=== PATIENT | male | born 1950 | race Caucasian/White ===

== ENCOUNTER 2017-07-31 08:17 | Inpatient (IN) ==
--- OUTSIDE RECORDS SUMMARY | 2017-07-31 08:56 | External Medical Summary | Referral Summary ---
:1950 Author Organization [facility] [address] [place] [id number] Care Team Providers Name Role Phone Anjel Dickerson II Primary Care Physician Encounter VC Date(s): 12/03/14 - 12/03/14 [facility] [address] [place] [phone] [phone] Discharge Diagnosis: Encounter for examination required by Department of Transportation (DOT) Discharge Disposition: 01-Home or Self Care Attending Physician: Ben Parham MD Admitting Physician: Ben Parham MD Vital Signs Most recent to oldest [Reference Range]: 1 Temperature Tympanic [36.6-38.1 degC] 36.2 degC *LOW* (12/03/14 7:58 AM) Peripheral Pulse Rate [60-100 bpm] 68 bpm (12/03/14 7:58 AM) Respiratory Rate [14-20 br/min] 18 br/min (12/03/14 7:58 AM) Blood Pressure [90-140/60-90 mmHg] 132/86 mmHg (12/03/14 7:58 AM) Problem List No data available for this section Allergies, Adverse Reactions, Alerts No Known Medication Allergies Medications ProAir HFA 90 mcg/inh inhalation aerosol 1 puffs, Inhalation, QID, as needed for wheezing, # 8.5 g, 0 Refill(s) Start Date: 12/03/14 Status: Ordered Results No data available for this section Immunizations No data available for this section Procedures No data available for this section Social History Social History Type Response Smoking Status Never smoker Assessment and Plan Extracted from: Title: Ambulatory Patient Education Author: Ben Parham MD Date: 12/03 Medical Screening Exam A medical screening exam has been done. This exam helps find the cause of your problem and determines whether you need emergency treatment. Your exam has shown that you do not need emergency treatment a t this point. It is safe for you to go to your caregiver's office or clinic for treatment. You should make an appointment today to see your caregiver as soon as he or she is available. Depending on your illness, your symptoms and condition can exchange mechanic time. If your condition gets worse or you develop new or troubling symptoms before you see your caregiver, you should return to the emergency department for further evaluation. Document Released: 07/04/2005 Document Revised: 08/18/2012 Document Reviewed: 02/13/2012 Exit[employer] Patient Information 2014 [employer]. No follow up information was provided. Extracted from: Title: Office Visit Note Author: Ben Parham MD Date: 12/03/14 Assessment/Plan Encounter for examination required by Department of Transportation (DOT) Overall he appears healthy and doing well. 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 He'll continue to follow-up with his regular primary care physician for his other chronic health problems. Report completed.
--- OUTSIDE RECORDS SUMMARY | 2017-07-31 08:56 | External Medical Summary | Continuity of Care Document ---
:1950 Author Organization [facility] Allergies Active Description Code Type Severity Reaction Onset Reported/ Identified Relationship Clinical to Patient Status Yes No Allergy Drug 08/14/2012 Information Aller gy Yes No Known Drug 09/19/2012 Drug Aller Allergies gy Yes No Known Drug N/A N/A 09/19/2012 Drug Aller Allergies gy Yes No Known NKMA N/A N/A 12/03/2014 Medication Allergies Medications There is no data. Problems Date Dx Attending Type Code Diagnosis Diagnosed By Coded 08/14/2012 Clayton Turner MD Final 493.90 ASTHMA NOS 08/14/2012 Clayton Turner MD Final 511.0 PLEURISY W/O EFFUS OR TB 08/14/2012 Clayton Turner MD Final 553.3 DIAPHRAGMATIC HERNIA 08/14/2012 Clayton Turner MD Admitting 786.50 CHEST PAIN NOS 09/19/2012 Final 300.00 ANXIETY STATE NOS 09/19/2012 Final 530.81 ESOPHAGEAL REFLUX 09/19/2012 Final 600.00 PROS HYPERTR S OBST/LUTS 09/19/2012 786.05 SHORTNESS OF BREATH 09/19/2012 Final 793.19 NONSP FINDING-LF NEC 10/09/2012 Gianna ANGLIN, Final 786.05 SHORTNESS OF BREATH Aydee R 10/09/2012 Gianna ANGLIN, Admitting 786.05 SHORTNESS OF BREATH Aydee Tellez Procedures Code Description [place] [id number] DX Aydee Katz MD 09/19/2012 BRONCHOSCOPE/WASH Results There is no data. Encounters ACCT No. Visit Discharge Status Pt. Type Provider Facility Loc./Unit Complaint Date/Time [id number] 10/09/2012 10/09/2012 CLS Outpatient Gianna [facility]16[facility]59[id number]/14[facility]2012 08/14/2012 DIS Emergency Yue ANGLIN, Via [facility] 6 08:14:00 11:17:00 [facility] [id number] 09/19/2012 Document 5 07:26:00 Registrati on [id number] 11/14/2012 11/14/2012 CAN Outpatient Kennedy [facility]GLIN, [facility] [place] 00:00:00 00:00:00 [facility] [id number] 12/03/2014 12/03/2014 DIS Outpatient Prasad, Via [facility] New FM dot pt is 07:48:00 23:59:00 Ben Rodriguez paying for Clinic
[2017-07-31] MEDS ORDERED: METHYLPREDNISOLONE SOD SUCC 125mg/2ml INJECTION IM ONE (09:05)
--- NOTE | 2017-07-31 09:24 | Emergency Department Report ---
Asthma HPI - General Stated Complaint: ronni,weak, Time Seen by Provider: 07/31/17 08:50 Source: patient, RN notes reviewed, old records reviewed Mode of arrival: ambulatory Limitations: no limitations - History of Present Illness HPI Narrative: 67yo man presents to the ER for evaluation of flu-like symptoms. Pt awoke with severe nausea, headache, congestion, rhinorrhea, F/C, diaphoresis, myalgias and arthralgias at 0400 this AM. Had no symptoms prior to going to sleep last night. Did get his flu shot this year (and his PNA shot). Feels weak and tired. Has a h/o asthma; was dyspneic on arrival to the ER. MD complaint: shortness of breath Onset (ago): hour(s) Severity: severe Associated symptoms: productive cough, fever - Related Data Current Asthma Therapy: inhaled bronchodilator, inhaled steroid Home Medications Medication Instructions Recorded Confirmed Albuterol Sulfate [Proair Hfa] 2 puff INH Q4H PRN #0 inhaler 06/30/14 07/31/17 Lansoprazole [Prevacid] 1 cap PO HS #0 cap 06/30/14 07/31/17 Tamsulosin HCl [Flomax] 0.4 mg PO HS #0 cap 06/30/14 07/31/17 ALPRAZolam [Xanax] 0.5 mg PO Q6H PRN 07/31/17 07/31/17 Fluticasone/Salmeterol 250/50 1 puff INH DAILY PRN 07/31/17 07/31/17 [Advair 250-50 Diskus] HydroCHLOROthiazide [Microzide] 12.5 mg PO DAILY 07/31/17 07/31/17 Hydrocodone/APAP 5/325 [[place] 1 - 2 tab PO QID PRN 07/31/17 07/31/17 5/325] Magnesium Oxide [Magnesium] 250 mg PO DAILY 07/31/17 07/31/17 Omeprazole [Prilosec] 20 mg PO DAILY 07/31/17 07/31/17 Potassium Chloride 10 meq PO DAILY 07/31/17 07/31/17 Allergies Allergy/AdvReac Type Severity Reaction Status Date / Time No Known Allergies Allergy Verified 07/31/17 09:39 Review of Systems All systems: reviewed and negative except as stated Constitutional: Reports: as per HPI, fever, chills, weakness. Denies: weight change, night sweats ENT: Reports: as per HPI, congestion. Denies: ear pain, throat pain, dental pain, hearing loss, epistaxis, dysphagia Respiratory: Reports: as per HPI, cough, dyspnea, wheezes. Denies: hemoptysis, stridor Musculoskeletal: Reports: as per HPI, arthralgia, myalgia. Denies: back pain, joint swelling [facility] Medical History Updates: Asthma. Anxiety. GERD. Hypokalemia. BPH - Social History Smoking status: Never smoker Physical Exam - Limitations Limitations: no limitations - General General appearance: alert, in no apparent distress, obese - Head Head exam: atraumatic, normocephalic, normal inspection - Eye Eye exam: Present: normal appearance, PERRL, EOMI. Absent: scleral icterus - ENT ENT exam: Present: mucous membranes moist, TM's normal bilaterally, normal external ear exam. Absent: normal exam, normal oropharynx (Erythema with PND) - Neck Neck exam: Present: normal inspection, full ROM, trachea midline. Absent: tenderness, lymphadenopathy - Chest Chest inspection: Present: normal inspection, symmetric chest wall rise. Absent : tenderness, rash - Respiratory Respiratory exam: Present: wheezes. Absent: normal lung sounds bilaterally ( Decreased air movement), respiratory distress, stridor, prolonged expiratory phase, crackles - Cardiovascular Cardiovascular exam: Present: normal rhythm, tachycardia, normal heart sounds - Abdominal Exam Abdominal exam: Present: soft, normal bowel sounds. Absent: distention, tenderness, guarding, rebound, rigidity - Extremities Exam Extremities exam: Present: normal inspection, full ROM, normal capillary refill. Absent: tenderness, pedal edema - Skin Skin exam: Present: warm, dry, intact. Absent: rash - Neurological Exam Neurological exam: Present: alert, oriented X3, CN II-XII intact, normal gait, reflexes normal. Absent: motor sensory deficit - Psychiatric Psychiatric exam: Present: anxious Course - Consultations Consultation #1: Hospitalist: Will admit for new-onset hypoxia. Time: 10:36 Vital Signs Temperature 100.0 F 07/31/17 08:35 Pulse Rate 130 H 07/31/17 08:35 Respiratory Rate 30 H 07/31/17 08:35 Blood Pressure 127/74 07/31/17 08:35 Pulse Oximetry 88 L 07/31/17 08:35 Temperature 100.0 F 07/31/17 08:35 Pulse Rate 112 H 07/31/17 09:50 Respiratory Rate 25 H 07/31/17 09:50 Blood Pressure 130/68 07/31/17 09:50 Pulse Oximetry 92 07/31/17 09:50 Dyspnea - MDM Narrative Medical decision making narrative: Pt with URI sx (flu neg), asthma exacerbation, and hypoxemia. After discussion wtih pt, will call hospitalist for likely admission. Hospitalist will admit pt for further eval/treatment. - Differential Diagnosis Differential diagnosis: Likely: Acute exacerbation, Status asthmaticus, Acute asthmatic bronchitis, Pneumonia, COPD exacerbation, Pneumothorax. Unlikely: PE , Pulmonary edema systolic, Pulmonary edema dystolic, ARDS, Foreign body in trachea - Medical Records Attestation: I reviewed the patient's medical records. - Lab Data Attestation: I reviewed the patient's lab results. Result diagrams: 07/31/17 09:38 07/31/17 09:38 Lab Results 07/31/17 07/31/17 07/31/17 Range/Units 09:15 09:38 09:38 WBC 13.1 H (4.5-11.0) T/MM3 RBC 5.20 (4.50-5.90) M/MM3 Hgb 15.7 (13.5-17.5) GM/DL Hct 48.3 (41-53) % MCV 92.9 (80-100) UM3 MCH 30.2 (26-34) UUG MCHC 32.5 (31-37) GM/DL RDW Std Deviation 43.3 (36.9-50.2) FL Plt Count 196 (130-400) T/MM3 MPV 9.8 (9.4-12.4) UM3 Immature Gran % (Auto) 0.2 (0.0-0.5) % Neut % (Auto) 84.7 H (33-66) % Lymph % (Auto) 6.8 L (23-45) % [place] % (Auto) 7.6 (0-9.0) % Eos % (Auto) 0.5 (0-4) % Baso % (Auto) 0.2 (0-2) % Neut # (Auto) 11.1 H (1.8-7.7) T/MM3 Lymph # (Auto) 0.9 L (1-4.8) T/MM3 [place] # (Auto) 1.0 H (0-0.8) T/MM3 Eos # (Auto) 0.1 (0-0.5) T/MM3 Baso # (Auto) 0.0 (0-0.2) T/MM3 Abs Immat Gran (auto) 0.02 (0.00-0.03) T/MM3 Turbidity < 20 (0-20) Sodium 141 (134-144) MEQ/L Potassium 3.8 (3.6-5) MEQ/L Chloride 102 (98-107) MEQ/L Carbon Dioxide 28 (22-30) MEQ/L Anion Gap 11 (5-15) MEQ/L BUN 13.0 (9-20) MG/DL Creatinine 1.0 (0.8-1.5) MG/DL GFR Calculation 75 BUN/Creatinine Ratio 13 (6-26) RATIO Glucose 110 (75-110) MG/DL Calculated Osmolality 272 (261-280) MOSM/KG Calcium 8.8 (8.4-10.2) MG/DL Icterus Index < 2 (0-7) Specimen Hemolysis < 15 (0-25) Influenza Type A (PCR) Negative (Negative) Influenza Type B (PCR) Negative (Negative) - Radiology Data Attestation: I reviewed the patient's radiology results. CXR: No acute cardiopulmonary abnormality. Disposition Clinical Impression: Hypoxemia URI (upper respiratory infection) Qualifiers: URI type: unspecified viral URI Qualified Code(s): J06.9 - Acute upper respiratory infection, unspecified Asthma exacerbation Qualifiers: Asthma severity: unspecified severity Asthma persistence: unspecified Qualified Code(s): J45.901 - Unspecified asthma with (acute) exacerbation Disposition: To [facility] Print Language: Maori Condition: Improved Prescriptions: No Action Tamsulosin HCl [Flomax] 0.4 mg PO HS #0 cap Albuterol Sulfate [Proair Hfa] 2 puff INH Q4H PRN #0 inhaler PRN Reason: Shortness Of Air Hydrocodone/APAP 5/325 [[place] 5/325] 1 - 2 tab PO QID PRN PRN Reason: Pain Omeprazole [Prilosec] 20 mg PO DAILY Potassium Chloride 10 meq PO DAILY HydroCHLOROthiazide [Microzide] 12.5 mg PO DAILY Magnesium Oxide [Magnesium] 250 mg PO DAILY ALPRAZolam [Xanax] 0.5 mg PO Q6H PRN PRN Reason: Anxiety Lansoprazole [Prevacid] 1 cap PO HS #0 cap Fluticasone/Salmeterol 250/50 [Advair 250-50 Diskus] 1 puff INH DAILY PRN PRN Reason: Shortness Of Air/Wheezing Referrals: Anjel Dickerson II, MD [Family Provider] - Time of Disposition: 10:47 - Seen By: physician
[2017-07-31] MEDS: ALBUTEROL/IPRATROPIUM 2.5mg-0.5mg/3ml NEB AEROSOL SCH ×3 (09:36→19:00)
--- NOTE | 2017-07-31 09:46 | XRay Report ---
Indication: Dyspnea PROCEDURE: XR chest 1V: Encounter: Initial Comparison: June 29, 2014 FINDINGS: The lungs are clear. There is no abnormal airspace opacity, pleural effusion or pneumothorax identified. The heart size, pulmonary vasculature and mediastinum are within normal limits. Old left rib fractures. IMPRESSION: No acute cardiopulmonary abnormality. .
[2017-07-31] MEDS ORDERED: KETOROLAC 60 MG/2 ML INJECTION IM ONE (09:49)
[2017-07-31] MEDS: SALINE FLUSH 10ml SYRINGE IVF PRN ×2 (11:03→21:19)
[2017-07-31 11:53] VITALS: BMI 27.8
[2017-07-31] MEDS ORDERED: ACETAMINOPHEN 325 MG TABLET PO PRN (12:12)
[2017-07-31] MEDS ORDERED: MORPHINE SULFATE 4mg INJECTION IVP PRN (12:12)
[2017-07-31] MEDS ORDERED: ONDANSETRON 4 MG/2 ML INJECTION IVP PRN (12:12)
[2017-07-31] MEDS ORDERED: ALBUTEROL/IPRATROPIUM 2.5mg-0.5mg/3ml NEB AEROSOL PRN (12:12)
--- NOTE | 2017-07-31 13:41 | CT Scan Report ---
Indication: headache PROCEDURE: CT head/brain wo con: Encounter: Initial Comparison: None Technique: Axial CT images through the head were performed without contrast. Iterative Reconstruction dose reducing technique was utilized. FINDINGS: The ventricles are of normal size, shape, and contour for the patient's age. There are scattered areas of low attenuation in the white matter which most likely represent changes from chronic microvascular ischemia. The brainstem, cerebellum, and cerebral hemispheres otherwise have a normal morphology and CT attenuation. There is no evidence of midline displacement. No hemorrhage, signs of acute territorial stroke, mass effect, mass lesions, or edema is evident. The visualized portions of the skull base, midface, and calvarium demonstrate no abnormality. Mucosal thickening in the paranasal sinuses, severe throughout the ethmoid air cells with small air-fluid levels seen in the maxillary sinuses. The tympanic and mastoid cavities appear normal. IMPRESSION: 1. No acute intracranial abnormality or hemorrhage. 2. Acute sinusitis, worst in the ethmoids. .
[2017-07-31] MEDS ORDERED: CEFTRIAXONE 1 G in NS 100 ML IV SCH (13:45)
[2017-07-31] MEDS: NS 1,000 ML IV SCH (13:47)
--- NOTE | 2017-07-31 13:59 | History & Physical Report ---
History of Present Illness Date: 07/31/17 Chief complaint: Respiratory distress with hypoxia and hypercapnia, SIRS HPI: Wilfrido Espinal is a pleasant 67-year-old male patient of Dr. Rodriguez who presented to [facility] ED today, 07/31/17, for evaluation of a severe headache, fevers and chills. He reports that he woke up this morning around 0400 with chills and night sweats and then suddenly had "the worst headache of his life" which he states came on suddenly and was pounding in nature. He admits to a history of occasional headaches but denies any similar prior headaches. He denies any changes in vision, neck pain or stiffness, numbness, tingling or focal weakness. He reports that he was "fine" when he went to bed and then woke up sick. He states he has been around his grandchildren recently who "are always sick". In addition to his headache, he complained of feeling more short of breath with subjective fevers. He denies any cough, congestion, sinus drainage , chest pain, abdominal pain, dysuria, hematuria or diarrhea. His last BM was yesterday which he states was loose but not diarrhea. Upon arrival to the ED, he had a temperature of 100.0, tachycardic (HR 130), tachypneic (30) and hypoxic at 88% on room air. He has a past medical history significant for asthma but does not use his inhalers daily. Labs obtained revealed leukocytosis (WBC 13.1). BMP was unremarkable. Influenza was negative. CXR showed no acute cardiopulmonary abnormalities. While in the ED, he received a DuoNeb treatment and Solu-Medrol 125mg IV x [address] Lundberg was consulted and accepted him into observation status for further evaluation, close respiratory monitoring with respiratory treatments including supplemental oxygen and IV medications. His length of stay is not expected to exceed more than 2 over nights. He denies a history of oxygen use at home. Review of Systems All systems PM: 10-point ROS was reviewed, no additional remarkable complaints except - Constitutional Constitutional: Present: chills, fever(s), malaise, night sweats, weakness ( generalized) - EEVTT Eyes: Absent: change in vision, diplopia, loss of vision, photophobia Ears: Absent: ear pain Balance: Absent: falling to one side Nose: Present: allergies. Absent: nosebleeds Mouth/Throat: Present: dry mouth. Absent: sore throat, changes in swallowing, hoarseness - Cardiovascular Cardiovascular: Present: dyspnea on exertion. Absent: chest pain, palpitations , syncope, orthopnea, edema, cyanosis Rhythm: Present: regular rhythm Vascular: Absent: pallor of an extermity, pedal edema, unilateral swelling - Respiratory Respiratory: Present: dyspnea, dyspnea on exertion. Absent: cough, hemoptysis, wheezing, pain on inspiration, chest congestion, excessive phlegm production - Gastrointestinal Gastrointestinal: Present: dyspepsia. Absent: abdominal pain, constipation, melena, nausea, vomiting - Genitourinary Genitourinary: Absent: dysuria, flank pain, hematuria - Musculoskeletal Musculoskeletal: Present: muscle cramps (occasional), muscle weakness, myalgias. Absent: abnormal gait, back pain, deformity, neck pain, stiffness - Integumentary/Breasts Integumentary: Absent: rash - Neurological Neurological: Present: headache(s), weakness (generalized). Absent: abnormal movements, confusion, convulsions, dizziness, focal weakness, lack of coordination, loss of vision, memory loss, numbness, paresthesias, restless legs - Psychiatric Psychiatric: Absent: anxiety, depression - Endocrine Endocrine: Absent: flushing, heat intolerance, palpitations - Hematologic/Lymphatic Hematologic/Lymphatic: Absent: easy bruising - Allergic/Immunologic Allergic/Immunologic: Present: seasonal rhinorrhea Past Medical History Patient Stated Medical History Hypertension. Asthma. GERD. Cataract. Anxiety. BPH. Allergic Rhinitis. Chronic back pain. Diverticulosis. History of PUD. History of pneumonia - 2013. Surgical History: Colonoscopy and EGD - 2012. Back sugery at [facility], Dr. Garcia. Tonsillectomy. Family History Updates: Mother - hypertension, hyperlipidemia, CAD. Father - COPD. Brother - DM. - Social History Smoking status: Never smoker Substance use type: does not use Alcohol intake frequency: a few times a month Housing: house Household members: spouse ([place]) Current occupational status: retired Does patient use chewing tobacco?: No Current residence: Apartment/Private Home Social history: PCP - Dr. Dickerson. Medications Home Medications Medication Instructions Recorded Confirmed Type Albuterol Sulfate [Proair Hfa] 2 puff INH Q4H PRN #0 inhaler 06/30/14 07/31/17 History Lansoprazole [Prevacid] 1 cap PO HS #0 cap 06/30/14 07/31/17 History Tamsulosin HCl [Flomax] 0.4 mg PO HS #0 cap 06/30/14 07/31/17 History ALPRAZolam [Xanax] 0.5 mg PO Q6H PRN 07/31/17 07/31/17 History Fluticasone/Salmeterol 250/50 1 puff INH DAILY PRN 07/31/17 07/31/17 History [Advair 250-50 Diskus] HydroCHLOROthiazide [Microzide] 12.5 mg PO DAILY 07/31/17 07/31/17 History Hydrocodone/APAP 5/325 [[place] 1 - 2 tab PO QID PRN 07/31/17 07/31/17 History 5/325] Magnesium Oxide [Magnesium] 250 mg PO DAILY 07/31/17 07/31/17 History Omeprazole [Prilosec] 20 mg PO DAILY 07/31/17 07/31/17 History Potassium Chloride 10 meq PO DAILY 07/31/17 07/31/17 History Allergies Allergy/AdvReac Type Severity Reaction Status Date / Time No Known Allergies Allergy Verified 07/31/17 09:39 Exam Vital Signs: Temperature 98.5 F 07/31/17 11:33 Pulse Rate 94 07/31/17 11:33 Respiratory Rate 20 07/31/17 11:33 Blood Pressure 135/73 07/31/17 11:33 Pulse Oximetry 94 07/31/17 11:33 Telemetry Rhythm: Sinus Rhythm Height/Weight/BMI: Height 5 ft 7 in Weight 177 lb 14.609 oz Body Mass Index 27.8 Comments: Patient is seen immediately upon his arrival to his room. He is breathing easily on 2L NC. No cough or conversational dyspnea on exam. - Constitutional Present: no acute distress, well nourished, well developed, cooperative - Routine HEENT Exam Head: Present: normocephalic, atraumatic Eye: Present: EOMI, PERRL, cataracts. Absent: conjunctival icterus ENT: Present: mucous membranes dry, oropharynx clear, dentition normal Comments: No sinus tenderness with palpation. Patient sounds nasally congested. - Routine Neck Exam Present: supple, full ROM. Absent: trachea midline Comments: No nuchal rigidity or meningeal signs. - Routine Chest/Breast/Axilla Exam Chest wall: Absent: pacemaker - Routine Respiratory Exam Present: dyspnea, decreased breath sounds (right middle/base). Absent: accessory muscle use, rhonchi, stridor, wheezes, crackles Comments: No cough or conversational dyspnea on exam. - Routine Cardiovascular Exam Present: RRR, S1, S2, no murmur - Routine Abdominal Exam Present: soft, normoactive bowel sounds, non distended, non tender - Routine Extremities Exam Present: no edema, non tender, full ROM, pulses intact - Routine Back/Spine/Pelvis Exam Back/Spine: Present: full ROM. Absent: vertebral tenderness - Routine Skin Exam Present: intact, warm. Absent: jaundice Comments: afebrile on exam; patient is sweating but complaining of being chilled. - Routine Neurological Exam Present: alert, oriented X3, CN II-XII intact, moving all extremities, hearing grossly intact, normal speech. Absent: sensory deficit, motor deficit, altered mental status, hemineglect, facial asymmetry - Routine Psychiatric Exam Present: normal affect, cooperative, good insight, good judgment Results - Labs CBC & Chem 7: 07/31/17 09:38 07/31/17 09:38 Labs: leukocytosis. Microbiology Results: Microbiology 07/31/17 12:41 Peripheral/Iv Start Blood Culture - Preliminary Culture Initiated - Results Pending 07/31/17 12:47 Peripheral/Iv Start Blood Culture - Preliminary Culture Initiated - Results Pending - Imaging and Cardiology Chest x-ray Status: image reviewed by me Additional comments: Date of Exam: 07/31/17 Type of Exam(s): XR chest 1V Reason for Exam(s): Dyspnea FINDINGS: The lungs are clear. There is no abnormal airspace opacity, pleural effusion or pneumothorax identified. The heart size, pulmonary vasculature and mediastinum are within normal limits. Old left rib fractures. IMPRESSION: No acute cardiopulmonary abnormality. CT scan - head Status: image reviewed by me Additional comments: Date of Exam: 07/31/17 Type of Exam(s): CT head/brain wo con Reason for Exam(s): headache FINDINGS: The ventricles are of normal size, shape, and contour for the patient's age. There are scattered areas of low attenuation in the white matter which most likely represent changes from chronic microvascular ischemia. The brainstem, cerebellum, and cerebral hemispheres otherwise have a normal morphology and CT attenuation. There is no evidence of midline displacement. No hemorrhage, signs of acute territorial stroke, mass effect, mass lesions, or edema is evident. The visualized portions of the skull base, midface, and calvarium demonstrate no abnormality. Mucosal thickening in the paranasal sinuses, severe throughout the ethmoid air cells with small air-fluid levels seen in the maxillary sinuses. The tympanic and mastoid cavities appear normal. IMPRESSION: 1. No acute intracranial abnormality or hemorrhage. 2. Acute sinusitis, worst in the ethmoids. Assessment and Plan (1) Acute respiratory failure with hypoxia and hypercarbia Current visit: Yes Status: Acute (2) SIRS (systemic inflammatory response syndrome) Current visit: Yes Status: Acute Assessment and Plan: 67-year-old patient of Dr. Dickerson'lauri admitted to observation for respiratory distress, fever, chills, hypoxia requiring 2-3L oxygen and hypercapnia meeting SIRS/SEPSIS criteria from suspected pulmonary source with negative influenza x 1 day. Acute Medical History SIRS/Severe Sepsis most likely secondary to pulmonary source as indicated by: fever, tachycardia, tachypnea, leukocytosis, hypoxia and elevated lactate, acute , present on admission. Acute respiratory distress with hypoxia and hypercapnia, present on admission - patient does not use supplemental home oxygen. Acute sinusitis Patient Stated Medical History Hypertension. Asthma. GERD. Cataract. Anxiety. BPH. Allergic Rhinitis. Chronic back pain. Diverticulosis. History of PUD. History of pneumonia - 2013. Plan - 07/31/2017 (Admission) Admit to observation status under the care of Dr. Lundberg. Clinically the patient appears ill on exam with active sweating but complaining of chills and fever. He continues to require 2L oxygen due to hypoxia with slightly diminished lung sounds in right base. Will obtain blood cultures x 2 as well as serial lactates now. Initial lactate was elevated at 2.7. CXR in ED showed no acute cardiopulmonary abnormalities, though pulmonary source is highly suspected. Influenza was negative. Will obtain full respiratory panel and initiate Rocephin 1g IV daily with Azithromycin 500mg IV daily for coverage of pulmonary pathogens. Monitor closely on telemetry with continuous pulse oximetry. Wean oxygen as able as patient does not use oxygen at home. Continue with respiratory cares - DuoNeb treatments QID and PRN as well as Pulmicort BID. Continuous oxygen as needed to maintain SAO2 >90%, weaning as able. Continue Prednisone 40mg po daily x 5 day burst for pulmonary inflammation and history of asthma. Will try and obtain sputum culture. Will place on respiratory precautions until results from respiratory panel are complete. NS 100cc/hr for hydration given concern for sepsis. CT head was obtained given severe headache and revealed acute sinusitis without intracranial abnormalities. Will recheck labs in AM to monitor blood counts, electrolytes and renal function. Upon discharge, patient's care will be returned to his PCP, Dr. Dickerson. Patient requests to be a FULL CODE on exam. DVT Prophylaxis: SCD's GI Prophylaxis: Protonix Resuscitation Status: Full Code - Time spent with patient Time with patient PN: 70 minutes - Physician Narrative Physician: other (Dr. Lundberg.) Narrative: Date: 07/31/17 Time: 1527 I have independently evaluated and examined this patient. I reviewed the chart, the patient's history, and the DISABILITY INSURANCE CLAIM EXAMINER/PA's documented findings as above. We discussed and formulated the assessment and plan as above with additions as below: Patient states he started having a headache this am. He has a rhinorrhea but states this is not abnormal for him. Lungs are clear on exam. Patient is alert and oriented Plan: obtain viral panel, start abx, follow cultures, monitor closely, trend lactic acid Sepsis Assessment - Evaluation SIRS Criteria: pulse > 90 beats/minute, WBC > 12,000, RR > 20 Severe Sepsis: lactate > 2.0 mg/dL Hospital Course Summary Disclaimer: The visit summary below is not to be considered part of the above Progress Note. Hospital Course: Plan - 07/31/2017 (Admission) Admit to observation status under the care of Dr. Lundberg. Clinically the patient appears ill on exam with active sweating but complaining of chills and fever. He continues to require 2L oxygen due to hypoxia with slightly diminished lung sounds in right base. Will obtain blood cultures x 2 as well as serial lactates now. Initial lactate was elevated at 2.7. CXR in ED showed no acute cardiopulmonary abnormalities, though pulmonary source is highly suspected. Influenza was negative. Will obtain full respiratory panel and initiate Rocephin 1g IV daily with Azithromycin 500mg IV daily for coverage of pulmonary pathogens. Monitor closely on telemetry with continuous pulse oximetry. Wean oxygen as able as patient does not use oxygen at home. Continue with respiratory cares - DuoNeb treatments QID and PRN as well as Pulmicort BID. Continuous oxygen as needed to maintain SAO2 >90%, weaning as able. Continue Prednisone 40mg po daily x 5 day burst for pulmonary inflammation and history of asthma. Will try and obtain sputum culture. Will place on respiratory precautions until results from respiratory panel are complete. NS 100cc/hr for hydration given concern for sepsis. CT head was obtained given severe headache and revealed acute sinusitis without intracranial abnormalities. Will recheck labs in AM to monitor blood counts, electrolytes and renal function. Upon discharge, patient's care will be returned to his PCP, Dr. Dickerson. Patient requests to be a FULL CODE on exam.
[2017-07-31] MEDS ORDERED: CEFTRIAXONE 1 G in NS 50 ML IV SCH (14:15)
[2017-07-31] MEDS ORDERED: NS 1,000 ML IV ONE ×2 (15:33→17:19)
[2017-07-31] MEDS: AZITHROMYCIN IV 500 MG in NS 250ml 250 ML IV SCH (15:34)
[2017-07-31] MEDS: METHYLPREDNISOLONE SOD SUCC 125mg/2ml INJECTION IVP SCH ×2 (15:34→21:19)
[2017-07-31] MEDS ORDERED: HYDROCODONE/APAP 5mg/325mg TABLET PO PRN (17:22)
[2017-07-31] MEDS: DEXILANT 60 MG PO SCH (19:02)
[2017-07-31] MEDS: BUDESONIDE INH.SOLN 0.5mg/2ml NEB IPPB SCH (19:05)
[2017-07-31] MEDS ORDERED: APAP/DIPHENHYDRAMINE 500 MG/25 MG TABLET PO PRN (21:13)
[2017-07-31] MEDS: GUAIFENESIN LA 600 MG TABLET PO SCH (21:18)
[2017-07-31] MEDS: POM TAMSULOSIN 0.4 MG CAPSULE PO SCH (21:20)
[2017-08-01] MEDS: NS 1,000 ML IV SCH ×2 (01:44→15:58)
[2017-08-01] MEDS ORDERED: DEXILANT 60 MG PO SCH (06:30)
[2017-08-01] MEDS: ALBUTEROL/IPRATROPIUM 2.5mg-0.5mg/3ml NEB AEROSOL SCH ×2 (06:44→09:58)
[2017-08-01] MEDS: BUDESONIDE INH.SOLN 0.5mg/2ml NEB IPPB SCH (06:44)
[2017-08-01] MEDS ORDERED: PredniSONE 20 MG TABLET PO SCH (08:00)
--- NOTE | 2017-08-01 08:38 | XRay Report ---
INDICATION: hypoxia, dyspnea PROCEDURE: CHEST 2-VIEWS UPRIGHT (PA & LAT) Encounter: Initial COMPARISON: July 31, 2017 FINDINGS: The lungs are clear without evidence of focal abnormal airspace opacity. There is no pleural effusion or pneumothorax. The heart size, mediastinal contours and pulmonary vascularity are stable with a prominent hiatal hernia. IMPRESSION: No acute cardiopulmonary disease. .
[2017-08-01] MEDS: AZITHROMYCIN IV 500 MG in NS 250ml 250 ML IV SCH (08:52)
[2017-08-01] MEDS: GUAIFENESIN LA 600 MG TABLET PO SCH ×2 (08:53→21:44)
[2017-08-01] MEDS ORDERED: MAGNESIUM OXIDE 400 MG TABLET PO SCH (09:00)
[2017-08-01] MEDS ORDERED: OMEPRAZOLE 20 MG CAPSULE PO SCH (09:00)
[2017-08-01] MEDS ORDERED: NS 1,000 ML IV ONE (10:49)
--- NOTE | 2017-08-01 10:59 | Progress Note ---
- Date 08/01/17 Subjective: F/U: Acute sinusitis, elevated lactate Wilfrido is seen today while resting in bed, watching TV, with his pacing around the room. She eagerly expresses desire for her to be discharged today. He reports that he did not sleep well last night and thinks it was from the steroids. He denies any other complaints or concerns. No chest pain, shortness of breath, abdominal pain, nausea, vomiting or dysuria. He denies any cough, fevers or chills today. His headache is improving. CT head results were discussed and revealed acute sinusitis without other abnormalities. Repeat CXR today showed no acute cardiopulmonary abnormalities. He continues to breath easily on room air. Respiratory panel revealed coronavirus. Serial lactates were 2.7, 5.5, 4.0 and 4.1 this morning. Extensive review of medications and medical records conducted and case discussed with Dr. Lundberg. Appetite is stable but no BM since admission. He admits to passing gas. Objective Vital signs: Temperature 98.0 F 08/01/17 07:00 Pulse Rate 69 08/01/17 08:00 Respiratory Rate 18 08/01/17 09:59 Blood Pressure 134/69 08/01/17 07:00 Pulse Oximetry 98 08/01/17 09:59 Rhythm: Normal Sinus Rhythm Height/Weight/BMI: Height 5 ft 7 in Weight 177 lb 7.554 oz Body Mass Index 27.8 Comments: Resting in bed with his pacing in the room. Breathing easily on room air. - Constitutional Present: no acute distress, well nourished, well developed, cooperative - Routine HEENT Exam Head: Present: normocephalic, atraumatic Eye: Present: PERRL. Absent: conjunctival icterus ENT: Present: mucous membranes moist - Routine Respiratory Exam Present: CTA bilaterally. Absent: dyspnea, respiratory distress, rhonchi, stridor, wheezes, crackles - Routine Cardiovascular Exam Present: RRR, S1, S2 - Routine Abdominal Exam Present: soft, normoactive bowel sounds, non distended, non tender - Routine Extremities Exam Present: edema (trace), non tender, full ROM, pulses intact - Routine Back/Spine/Pelvis Exam Back/Spine: Present: full ROM. Absent: vertebral tenderness - Routine Musculoskeletal Exam Musculoskeletal: Present: moving extremities well - Routine Skin Exam Present: intact, dry, warm. Absent: jaundice Comments: afebrile - Routine Neurological Exam Present: alert, oriented X3, CN II-XII intact, moving all extremities, normal speech. Absent: facial asymmetry - Routine Lymphatic Exam Lymphatic: Absent: lymphedema - Routine Psychiatric Exam Present: normal affect, cooperative Results - Labs CBC & Chem 7: 08/01/17 04:06 08/01/17 04:06 Microbiology Results: Microbiology 07/31/17 12:41 Peripheral/Iv Start Blood Culture - Preliminary Culture Initiated - Results Pending 07/31/17 12:47 Peripheral/Iv Start Blood Culture - Preliminary Culture Initiated - Results Pending - Imaging and Cardiology Chest x-ray Status: image reviewed by me Additional comments: Date of Exam: 08/01/17 Type of Exam(s): XR chest 2V Reason for Exam(s): hypoxia, dyspnea FINDINGS: The lungs are clear without evidence of focal abnormal airspace opacity. There is no pleural effusion or pneumothorax. The heart size, mediastinal contours and pulmonary vascularity are stable with a prominent hiatal hernia. IMPRESSION: No acute cardiopulmonary disease. Assessment and Plan (1) Acute respiratory failure with hypoxia and hypercarbia Current visit: Yes Status: Acute (2) SIRS (systemic inflammatory response syndrome) Current visit: Yes Status: Acute Assessment and Plan: 67-year-old patient of Dr. Dickerson's admitted to observation for respiratory distress, fever, chills, hypoxia requiring 2-3L oxygen and hypercapnia meeting SIRS/SEPSIS criteria from suspected pulmonary source with negative influenza x 1 day. Acute Medical History SIRS/Severe Sepsis most likely secondary to pulmonary source as indicated by: fever, tachycardia, tachypnea, leukocytosis, hypoxia and elevated lactate, acute , present on admission - improving. Acute respiratory distress with hypoxia and hypercapnia, present on admission - patient does not use supplemental home oxygen - resolved Acute sinusitis. Plan - 08/01/17 Patient able to wean off oxygen and breathing easily on room air. Repeat CXR today revealed no acute cardiopulmonary abnormalities. Viral panel positive for coronavirus. Serial lactates elevated - 2.7, 5.5, 4.0, 4.1. Patient clinically appears improved and stable. Extensive review of medical records and medications performed. Repeat lactate and check CPK at 1400 today. Give 1L NS at 250cc/hr x 1 bolus followed by continued NS at 100cc/hr for continued hydration given elevated lactate. Given initial presentation with sweating and SOA with unexplained elevated lactate, will obtain troponin and EKG now. Continue to monitor closely on telemetry. Will discontinue Azithromycin and Rocephin given clear CXR. Initiate Augmentin for acute sinusitis. Will continue respiratory cares and steroids. Continue respiratory precautions. Patient eager for discharge in near future, once lactate trends down. DVT Prophylaxis: SCD's Resuscitation Status: Full Code - Time spent with patient Time with patient PN: 25 minutes - Physician Narrative Physician: other (Dr. Lundberg) Narrative: Date: 08/01/17 Time: 1306 Patient reports he is ready to go home. He is feeling much better and headache is resolved. Lungs CTAB, no crackles or wheezes, alert and oriented Plan: repeat labs--Lactic acid elevated but no clear explanation. Troponin negative. labs otherwise unremarkable. Will repeat labs and plan for discharge if trending down/normal. Hospital Course Summary Disclaimer: The visit summary below is not to be considered part of the above Progress Note. Hospital Course: Plan - 07/31/2017 (Admission) Admit to observation status under the care of Dr. Lundberg. Clinically the patient appears ill on exam with active sweating but complaining of chills and fever. He continues to require 2L oxygen due to hypoxia with slightly diminished lung sounds in right base. Will obtain blood cultures x 2 as well as serial lactates now. Initial lactate was elevated at 2.7. CXR in ED showed no acute cardiopulmonary abnormalities, though pulmonary source is highly suspected. Influenza was negative. Will obtain full respiratory panel and initiate Rocephin 1g IV daily with Azithromycin 500mg IV daily for coverage of pulmonary pathogens. Monitor closely on telemetry with continuous pulse oximetry. Wean oxygen as able as patient does not use oxygen at home. Continue with respiratory cares - DuoNeb treatments QID and PRN as well as Pulmicort BID. Continuous oxygen as needed to maintain SAO2 >90%, weaning as able. Continue Prednisone 40mg po daily x 5 day burst for pulmonary inflammation and history of asthma. Will try and obtain sputum culture. Will place on respiratory precautions until results from respiratory panel are complete. NS 100cc/hr for hydration given concern for sepsis. CT head was obtained given severe headache and revealed acute sinusitis without intracranial abnormalities. Will recheck labs in AM to monitor blood counts, electrolytes and renal function. Upon discharge, patient's care will be returned to his PCP, Dr. Dicekrson. Patient requests to be a FULL CODE on exam. Plan - 08/01/17 Patient able to wean off oxygen and breathing easily on room air. Repeat CXR today revealed no acute cardiopulmonary abnormalities. Viral panel positive for coronavirus. Serial lactates elevated - 2.7, 5.5, 4.0, 4.1. Patient clinically appears improved and stable. Extensive review of medical records and medications performed. Repeat lactate and check CPK at 1400 today. Give 1L NS at 250cc/hr x 1 bolus followed by continued NS at 100cc/hr for continued hydration given elevated lactate. Given initial presentation with sweating and SOA with unexplained elevated lactate, will obtain troponin and EKG now. Continue to monitor closely on telemetry. Will discontinue Azithromycin and Rocephin given clear CXR. Initiate Augmentin for acute sinusitis. Will continue respiratory cares and steroids. Continue respiratory precautions. Patient eager for discharge in near future, once lactate trends down.
[2017-08-01] MEDS: AMOX/CLAV 875 MG/125 MG TABLET PO SCH ×2 (11:43→21:45)
[2017-08-01] MEDS ORDERED: SALINE FLUSH 10ml SYRINGE ONE (16:35)
[2017-08-01] MEDS ORDERED: IOHEXOL 300mg/ml 100ml INJECTION ONE (16:35)
[2017-08-01] MEDS: LACTOBACILLUS (15B cfu) CAPSULE PO SCH (17:35)
[2017-08-01] MEDS ORDERED: ZOLPIDEM 10 MG TABLET PO PRN (17:59)
[2017-08-01] MEDS: DEXILANT 60 MG PO SCH (18:21)
[2017-08-01] MEDS: POM TAMSULOSIN 0.4 MG CAPSULE PO SCH (21:45)
[2017-08-01 23:49] VITALS: O2SAT 91
[2017-08-02 08:06] VITALS: BP 163/96; RESP 16; TEMP 98
--- NOTE | 2017-08-02 08:33 | CT Scan Report ---
Indication: elevated lactate, leukocytosis PROCEDURE: CT chest abd/pelvis w con: Encounter: Subsequent Comparison: None Technique: Axial CT images were performed through the chest, abdomen and pelvis after the administration of intravenous contrast. Coronal and sagittal two-dimensional reformats. Automated Exposure Control and Iterative Reconstruction dose reducing techniques were utilized. Contrast: Omnipaque 300 100 mL Findings: Chest: Fine groundglass nodules seen scattered throughout the right lung with more focal consolidation in the medial right lower lobe. Linear atelectasis or scarring in the medial left lower lobe. No pneumothorax or pleural effusion. No axillary or mediastinal lymphadenopathy. Heart size is normal. No pericardial effusion. Great vessels are unremarkable. Large hiatal hernia with a partially intrathoracic stomach. Abdomen/pelvis: The liver appears normal. The gallbladder is contracted. The spleen, pancreas and adrenal glands are within normal limits. The kidneys are normal. No abdominal or pelvic adenopathy. Bladder is normal. Minimal colonic diverticulosis without evidence of acute diverticulitis. No bowel obstruction. The appendix is normal. Bone windows show no acute findings. Impression: Infectious or inflammatory opacities in the right lung could represent an early atypical or viral pneumonia. There is superimposed atelectasis in the right base. There is a preliminary report by [employer]. .
[2017-08-02] MEDS: AMOX/CLAV 875 MG/125 MG TABLET PO SCH (08:56)
[2017-08-02] MEDS: LACTOBACILLUS (15B cfu) CAPSULE PO SCH (08:56)
[2017-08-02] MEDS: GUAIFENESIN LA 600 MG TABLET PO SCH (08:57)
[2017-08-02] MEDS ORDERED: MAGNESIUM OXIDE 400 MG TABLET PO SCH (09:00)
[2017-08-02 09:46] VITALS: PULSE 79
--- NOTE | 2017-08-02 11:53 | Discharge Summary ---
Discharge Information Date of admission: 08/01/17 14:42 Anticipated date of discharge: 08/02/17 Attending Physician: Jennifer Lundberg MD Primary care physician: Anjel Dickerson II, MD - Discharge Diagnosis (1) Acute respiratory failure with hypoxia and hypercarbia Status: Acute (2) SIRS (systemic inflammatory response syndrome) Status: Acute RLL pneumonia Lactic acidosis Acute hypoxic respiratory failure URI 2/2 to Miranda virus - Laboratory Labs: Laboratory Tests 07/31/17 07/31/17 07/31/17 09:15 09:38 09:38 WBC 13.1 H RBC 5.20 Hgb 15.7 Hct 48.3 MCV 92.9 MCH 30.2 MCHC 32.5 RDW Std Deviation 43.3 Plt Count 196 MPV 9.8 Immature Gran % (Auto) 0.2 Neut % (Auto) 84.7 H Lymph % (Auto) 6.8 L [place] % (Auto) 7.6 Eos % (Auto) 0.5 Baso % (Auto) 0.2 Neut # (Auto) 11.1 H Lymph # (Auto) 0.9 L [place] # (Auto) 1.0 H Eos # (Auto) 0.1 Baso # (Auto) 0.0 Abs Immat Gran (auto) 0.02 Neutrophils % (Manual) Band Neutrophils % Lymphocytes % (Manual) Monocytes % (Manual) Neutrophils # (Manual) Band Neutrophils # Lymphocytes # (Manual) Monocytes # (Manual) RBC Morph Comment INR Turbidity < 20 Sodium 141 Potassium 3.8 Chloride 102 Carbon Dioxide 28 Anion Gap 11 BUN 13.0 Creatinine 1.0 GFR Calculation 75 BUN/Creatinine Ratio 13 Glucose 110 Calculated Osmolality 272 Calcium 8.8 Magnesium Total Bilirubin Icterus Index < 2 AST ALT Alkaline Phosphatase Creatine Kinase Troponin I Total Protein Albumin Globulin Albumin/Globulin Ratio Plasma Lactate Procalcitonin Specimen Hemolysis < 15 Ur Collection Type Urine Color Urine Clarity Urine pH Ur Specific [place] Urine Protein Urine Glucose (UA) Urine Ketones Urine Occult Blood Urine Nitrate Urine Bilirubin Urine Urobilinogen Ur Leukocyte Esterase Urinalysis Comment Adenovirus (PCR) B.parapertussis DNA PCR C. pneumoniae DNA (PCR) Coronavirus OC43 (PCR) Coronavirus HKU1 (PCR) Coronavirus 229E (PCR) Coronavirus NL63 (PCR) Human Metapneumovir PCR Influenza Type A (PCR) Negative Influenza Type B (PCR) Negative M. pneumoniae (PCR) Parainfluenza 1 (PCR) Parainfluenza 2 (PCR) Parainfluenza 3 (PCR) Parainfluenza 4 (PCR) RSV (PCR) Entero/Rhino (PCR) 07/31/17 07/31/17 07/31/17 12:42 13:52 15:00 WBC RBC Hgb Hct MCV MCH MCHC RDW Std Deviation Plt Count MPV Immature Gran % (Auto) Neut % (Auto) Lymph % (Auto) [place] % (Auto) Eos % (Auto) Baso % (Auto) Neut # (Auto) Lymph # (Auto) [place] # (Auto) Eos # (Auto) Baso # (Auto) Abs Immat Gran (auto) Neutrophils % (Manual) Band Neutrophils % Lymphocytes % (Manual) Monocytes % (Manual) Neutrophils # (Manual) Band Neutrophils # Lymphocytes # (Manual) Monocytes # (Manual) RBC Morph Comment INR Turbidity Sodium Potassium Chloride Carbon Dioxide Anion Gap BUN Creatinine GFR Calculation BUN/Creatinine Ratio Glucose Calculated Osmolality Calcium Magnesium 1.9 Total Bilirubin Icterus Index AST ALT Alkaline Phosphatase Creatine Kinase Troponin I Total Protein Albumin Globulin Albumin/Globulin Ratio Plasma Lactate 2.7 H Procalcitonin Specimen Hemolysis Ur Collection Type Urine, void-cc/notcc Urine Color Yellow Urine Clarity Clear Urine pH 7.0 Ur Specific [place] 1.010 L Urine Protein Negative Urine Glucose (UA) 2+ A Urine Ketones Negative Urine Occult Blood Negative Urine Nitrate Negative Urine Bilirubin Negative Urine Urobilinogen 0.2 Ur Leukocyte Esterase Negative Urinalysis Comment Microscopic not ind. Adenovirus (PCR) Negative B.parapertussis DNA PCR Negative C. pneumoniae DNA (PCR) Negative Coronavirus OC43 (PCR) Negative Coronavirus HKU1 (PCR) Detected A Coronavirus 229E (PCR) Negative Coronavirus NL63 (PCR) Negative Human Metapneumovir PCR Negative Influenza Type A (PCR) Negative Influenza Type B (PCR) Negative M. pneumoniae (PCR) Negative Parainfluenza 1 (PCR) Negative Parainfluenza 2 (PCR) Negative Parainfluenza 3 (PCR) Negative Parainfluenza 4 (PCR) Negative RSV (PCR) Negative Entero/Rhino (PCR) Negative 07/31/17 07/31/17 08/01/17 16:19 22:07 04:06 WBC 22.6 H D RBC 4.95 Hgb 15.0 Hct 46.5 MCV 93.9 MCH 30.3 MCHC 32.3 RDW Std Deviation 43.3 Plt Count 206 MPV 10.3 Immature Gran % (Auto) Not performed Neut % (Auto) Not performed Lymph % (Auto) Not performed [place] % (Auto) Not performed Eos % (Auto) Not performed Baso % (Auto) Not performed Neut # (Auto) Not performed Lymph # (Auto) Not performed [place] # (Auto) Not performed Eos # (Auto) Not performed Baso # (Auto) Not performed Abs Immat Gran (auto) Not performed Neutrophils % (Manual) 83.0 H Band Neutrophils % 12.0 H Lymphocytes % (Manual) 5.0 L Monocytes % (Manual) Neutrophils # (Manual) 18.8 H Band Neutrophils # 2.7 Lymphocytes # (Manual) 1.1 Monocytes # (Manual) RBC Morph Comment Normal INR Turbidity Sodium Potassium Chloride Carbon Dioxide Anion Gap BUN Creatinine GFR Calculation BUN/Creatinine Ratio Glucose Calculated Osmolality Calcium Magnesium Total Bilirubin Icterus Index AST ALT Alkaline Phosphatase Creatine Kinase Troponin I Total Protein Albumin Globulin Albumin/Globulin Ratio Plasma Lactate 5.5 H* 4.0 H Procalcitonin Specimen Hemolysis Ur Collection Type Urine Color Urine Clarity Urine pH Ur Specific [place] Urine Protein Urine Glucose (UA) Urine Ketones Urine Occult Blood Urine Nitrate Urine Bilirubin Urine Urobilinogen Ur Leukocyte Esterase Urinalysis Comment Adenovirus (PCR) B.parapertussis DNA PCR C. pneumoniae DNA (PCR) Coronavirus OC43 (PCR) Coronavirus HKU1 (PCR) Coronavirus 229E (PCR) Coronavirus NL63 (PCR) Human Metapneumovir PCR Influenza Type A (PCR) Influenza Type B (PCR) M. pneumoniae (PCR) Parainfluenza 1 (PCR) Parainfluenza 2 (PCR) Parainfluenza 3 (PCR) Parainfluenza 4 (PCR) RSV (PCR) Entero/Rhino (PCR) 08/01/17 08/01/17 08/01/17 04:06 09:35 10:59 WBC RBC Hgb Hct MCV MCH MCHC RDW Std Deviation Plt Count MPV Immature Gran % (Auto) Neut % (Auto) Lymph % (Auto) [place] % (Auto) Eos % (Auto) Baso % (Auto) Neut # (Auto) Lymph # (Auto) [place] # (Auto) Eos # (Auto) Baso # (Auto) Abs Immat Gran (auto) Neutrophils % (Manual) Band Neutrophils % Lymphocytes % (Manual) Monocytes % (Manual) Neutrophils # (Manual) Band Neutrophils # Lymphocytes # (Manual) Monocytes # (Manual) RBC Morph Comment INR Turbidity < 20 Sodium 140 Potassium 3.8 Chloride 106 Carbon Dioxide 24 Anion Gap 10 BUN 17.0 Creatinine 0.9 GFR Calculation 85 BUN/Creatinine Ratio 19 Glucose 160 H Calculated Osmolality 274 Calcium 8.2 L Magnesium Total Bilirubin 0.30 Icterus Index < 2 AST 26 ALT 23 Alkaline Phosphatase 47 Creatine Kinase Troponin I < 0.012 Total Protein 7.0 Albumin 3.4 L Globulin 3.6 Albumin/Globulin Ratio 0.9 L Plasma Lactate 4.1 H* Procalcitonin Specimen Hemolysis 16 < 15 Ur Collection Type Urine Color Urine Clarity Urine pH Ur Specific [place] Urine Protein Urine Glucose (UA) Urine Ketones Urine Occult Blood Urine Nitrate Urine Bilirubin Urine Urobilinogen Ur Leukocyte Esterase Urinalysis Comment Adenovirus (PCR) B.parapertussis DNA PCR C. pneumoniae DNA (PCR) Coronavirus OC43 (PCR) Coronavirus HKU1 (PCR) Coronavirus 229E (PCR) Coronavirus NL63 (PCR) Human Metapneumovir PCR Influenza Type A (PCR) Influenza Type B (PCR) M. pneumoniae (PCR) Parainfluenza 1 (PCR) Parainfluenza 2 (PCR) Parainfluenza 3 (PCR) Parainfluenza 4 (PCR) RSV (PCR) Entero/Rhino (PCR) 08/01/17 08/01/17 08/01/17 13:27 13:30 13:30 WBC RBC Hgb Hct MCV MCH MCHC RDW Std Deviation Plt Count MPV Immature Gran % (Auto) Neut % (Auto) Lymph % (Auto) [place] % (Auto) Eos % (Auto) Baso % (Auto) Neut # (Auto) Lymph # (Auto) [place] # (Auto) Eos # (Auto) Baso # (Auto) Abs Immat Gran (auto) Neutrophils % (Manual) Band Neutrophils % Lymphocytes % (Manual) Monocytes % (Manual) Neutrophils # (Manual) Band Neutrophils # Lymphocytes # (Manual) Monocytes # (Manual) RBC Morph Comment INR Turbidity Sodium Potassium Chloride Carbon Dioxide Anion Gap BUN Creatinine GFR Calculation BUN/Creatinine Ratio Glucose Calculated Osmolality Calcium Magnesium Total Bilirubin Icterus Index AST ALT Alkaline Phosphatase Creatine Kinase 223 H Troponin I Total Protein Albumin Globulin Albumin/Globulin Ratio Plasma Lactate 5.1 H* Procalcitonin 0.80 Specimen Hemolysis Ur Collection Type Urine Color Urine Clarity Urine pH Ur Specific [place] Urine Protein Urine Glucose (UA) Urine Ketones Urine Occult Blood Urine Nitrate Urine Bilirubin Urine Urobilinogen Ur Leukocyte Esterase Urinalysis Comment Adenovirus (PCR) B.parapertussis DNA PCR C. pneumoniae DNA (PCR) Coronavirus OC43 (PCR) Coronavirus HKU1 (PCR) Coronavirus 229E (PCR) Coronavirus NL63 (PCR) Human Metapneumovir PCR Influenza Type A (PCR) Influenza Type B (PCR) M. pneumoniae (PCR) Parainfluenza 1 (PCR) Parainfluenza 2 (PCR) Parainfluenza 3 (PCR) Parainfluenza 4 (PCR) RSV (PCR) Entero/Rhino (PCR) 08/01/17 08/01/17 08/01/17 17:08 17:08 19:32 WBC RBC Hgb Hct MCV MCH MCHC RDW Std Deviation Plt Count MPV Immature Gran % (Auto) Neut % (Auto) Lymph % (Auto) [place] % (Auto) Eos % (Auto) Baso % (Auto) Neut # (Auto) Lymph # (Auto) [place] # (Auto) Eos # (Auto) Baso # (Auto) Abs Immat Gran (auto) Neutrophils % (Manual) Band Neutrophils % Lymphocytes % (Manual) Monocytes % (Manual) Neutrophils # (Manual) Band Neutrophils # Lymphocytes # (Manual) Monocytes # (Manual) RBC Morph Comment INR 1.04 Turbidity Sodium Potassium Chloride Carbon Dioxide Anion Gap BUN Creatinine GFR Calculation BUN/Creatinine Ratio Glucose Calculated Osmolality Calcium Magnesium Total Bilirubin Icterus Index AST ALT Alkaline Phosphatase Creatine Kinase Troponin I < 0.012 Total Protein Albumin Globulin Albumin/Globulin Ratio Plasma Lactate 2.4 H Procalcitonin Specimen Hemolysis < 15 Ur Collection Type Urine Color Urine Clarity Urine pH Ur Specific [place] Urine Protein Urine Glucose (UA) Urine Ketones Urine Occult Blood Urine Nitrate Urine Bilirubin Urine Urobilinogen Ur Leukocyte Esterase Urinalysis Comment Adenovirus (PCR) B.parapertussis DNA PCR C. pneumoniae DNA (PCR) Coronavirus OC43 (PCR) Coronavirus HKU1 (PCR) Coronavirus 229E (PCR) Coronavirus NL63 (PCR) Human Metapneumovir PCR Influenza Type A (PCR) Influenza Type B (PCR) M. pneumoniae (PCR) Parainfluenza 1 (PCR) Parainfluenza 2 (PCR) Parainfluenza 3 (PCR) Parainfluenza 4 (PCR) RSV (PCR) Entero/Rhino (PCR) 08/01/17 08/02/17 08/02/17 21:51 02:06 02:06 WBC 20.7 H RBC 4.87 Hgb 14.9 Hct 45.8 MCV 94.0 MCH 30.6 MCHC 32.5 RDW Std Deviation 44.2 Plt Count 216 MPV 9.9 Immature Gran % (Auto) Not performed Neut % (Auto) Not performed Lymph % (Auto) Not performed [place] % (Auto) Not performed Eos % (Auto) Not performed Baso % (Auto) Not performed Neut # (Auto) Not performed Lymph # (Auto) Not performed [place] # (Auto) Not performed Eos # (Auto) Not performed Baso # (Auto) Not performed Abs Immat Gran (auto) Not performed Neutrophils % (Manual) 88.0 H Band Neutrophils % 3.0 Lymphocytes % (Manual) 8.0 L Monocytes % (Manual) 1.0 Neutrophils # (Manual) 18.2 H Band Neutrophils # 0.6 Lymphocytes # (Manual) 1.7 Monocytes # (Manual) 0.2 RBC Morph Comment Normal INR Turbidity Sodium Potassium Chloride Carbon Dioxide Anion Gap BUN Creatinine GFR Calculation BUN/Creatinine Ratio Glucose Calculated Osmolality Calcium Magnesium Total Bilirubin Icterus Index AST ALT Alkaline Phosphatase Creatine Kinase Troponin I < 0.012 Total Protein Albumin Globulin Albumin/Globulin Ratio Plasma Lactate 2.2 1.0 Procalcitonin Specimen Hemolysis < 15 Ur Collection Type Urine Color Urine Clarity Urine pH Ur Specific [place] Urine Protein Urine Glucose (UA) Urine Ketones Urine Occult Blood Urine Nitrate Urine Bilirubin Urine Urobilinogen Ur Leukocyte Esterase Urinalysis Comment Adenovirus (PCR) B.parapertussis DNA PCR C. pneumoniae DNA (PCR) Coronavirus OC43 (PCR) Coronavirus HKU1 (PCR) Coronavirus 229E (PCR) Coronavirus NL63 (PCR) Human Metapneumovir PCR Influenza Type A (PCR) Influenza Type B (PCR) M. pneumoniae (PCR) Parainfluenza 1 (PCR) Parainfluenza 2 (PCR) Parainfluenza 3 (PCR) Parainfluenza 4 (PCR) RSV (PCR) Entero/Rhino (PCR) 08/02/17 08/02/17 02:06 07:27 WBC RBC Hgb Hct MCV MCH MCHC RDW Std Deviation Plt Count MPV Immature Gran % (Auto) Neut % (Auto) Lymph % (Auto) [place] % (Auto) Eos % (Auto) Baso % (Auto) Neut # (Auto) Lymph # (Auto) [place] # (Auto) Eos # (Auto) Baso # (Auto) Abs Immat Gran (auto) Neutrophils % (Manual) Band Neutrophils % Lymphocytes % (Manual) Monocytes % (Manual) Neutrophils # (Manual) Band Neutrophils # Lymphocytes # (Manual) Monocytes # (Manual) RBC Morph Comment INR Turbidity < 20 Sodium 144 Potassium 3.8 Chloride 113 H D Carbon Dioxide 24 Anion Gap 7 BUN 13.0 Creatinine 0.9 GFR Calculation 85 BUN/Creatinine Ratio 14 Glucose 117 H Calculated Osmolality 278 Calcium 8.0 L Magnesium Total Bilirubin Icterus Index < 2 AST ALT Alkaline Phosphatase Creatine Kinase Troponin I Total Protein Albumin Globulin Albumin/Globulin Ratio Plasma Lactate 1.3 Procalcitonin Specimen Hemolysis < 15 Ur Collection Type Urine Color Urine Clarity Urine pH Ur Specific [place] Urine Protein Urine Glucose (UA) Urine Ketones Urine Occult Blood Urine Nitrate Urine Bilirubin Urine Urobilinogen Ur Leukocyte Esterase Urinalysis Comment Adenovirus (PCR) B.parapertussis DNA PCR C. pneumoniae DNA (PCR) Coronavirus OC43 (PCR) Coronavirus HKU1 (PCR) Coronavirus 229E (PCR) Coronavirus NL63 (PCR) Human Metapneumovir PCR Influenza Type A (PCR) Influenza Type B (PCR) M. pneumoniae (PCR) Parainfluenza 1 (PCR) Parainfluenza 2 (PCR) Parainfluenza 3 (PCR) Parainfluenza 4 (PCR) RSV (PCR) Entero/Rhino (PCR) - Microbiology Miranda virus blood cultures negative - Radiology Radiology: Date of Exam: 08/01/17 Ordering Provider: Brittney Hyman Type of Exam(s): CT chest abd/pelvis w con Reason for Exam(s): elevated lactate, leukocytosis Indication: elevated lactate, leukocytosis PROCEDURE: CT chest abd/pelvis w con: Encounter: Subsequent Comparison: None Technique: Axial CT images were performed through the chest, abdomen and pelvis after the administration of intravenous contrast. Coronal and sagittal two-dimensional reformats. Automated Exposure Control and Iterative Reconstruction dose reducing techniques were utilized. Contrast: Omnipaque 300 100 mL Findings: Chest: Fine groundglass nodules seen scattered throughout the right lung with more focal consolidation in the medial right lower lobe. Linear atelectasis or scarring in the medial left lower lobe. No pneumothorax or pleural effusion. No axillary or mediastinal lymphadenopathy. Heart size is normal. No pericardial effusion. Great vessels are unremarkable. Large hiatal hernia with a partially intrathoracic stomach. Abdomen/pelvis: The liver appears normal. The gallbladder is contracted. The spleen, pancreas and adrenal glands are within normal limits. The kidneys are normal. No abdominal or pelvic adenopathy. Bladder is normal. Minimal colonic diverticulosis without evidence of acute diverticulitis. No bowel obstruction. The appendix is normal. Bone windows show no acute findings. Impression: Infectious or inflammatory opacities in the right lung could represent an early atypical or viral pneumonia. There is superimposed atelectasis in the right base. There is a preliminary report by [employer]. . History of Present Illness HPI: Wilfrido Espinal is a pleasant 67-year-old male patient of Dr. Rodriguez who presented to [facility] today, 07/31/17, for evaluation of a severe headache, fevers and chills. He reports that he woke up this morning around 0400 with chills and night sweats and then suddenly had "the worst headache of his life" which he states came on suddenly and was pounding in nature. He admits to a history of occasional headaches but denies any similar prior headaches. He denies any changes in vision, neck pain or stiffness, numbness, tingling or focal weakness. He reports that he was "fine" when he went to bed and then woke up sick. He states he has been around his grandchildren recently who "are always sick". In addition to his headache, he complained of feeling more short of breath with subjective fevers. He denies any cough, congestion, sinus drainage , chest pain, abdominal pain, dysuria, hematuria or diarrhea. His last BM was yesterday which he states was loose but not diarrhea. Upon arrival to the ED, he had a temperature of 100.0, tachycardic (HR 130), tachypneic (30) and hypoxic at 88% on room air. He has a past medical history significant for asthma but does not use his inhalers daily. Labs obtained revealed leukocytosis (WBC 13.1). BMP was unremarkable. Influenza was negative. CXR showed no acute cardiopulmonary abnormalities. While in the ED, he received a DuoNeb treatment and Solu-Medrol 125mg IV x [address] Lundberg was consulted and accepted him into observation status for further evaluation, close respiratory monitoring with respiratory treatments including supplemental oxygen and IV medications. His length of stay is not expected to exceed more than 2 over nights. He denies a history of oxygen use at home. Objective Vital signs: Temperature 98.0 F 08/02/17 07:00 Pulse Rate 79 08/02/17 08:00 Respiratory Rate 16 08/02/17 07:00 Blood Pressure 163/96 H 08/02/17 07:00 Pulse Oximetry 91 08/02/17 07:00 Rhythm: Normal Sinus Rhythm Height/Weight/BMI: Weight 80.8 kg - Constitutional Present: no acute distress, cooperative - Routine HEENT Exam Head: Present: normocephalic, atraumatic Eye: Present: EOMI, conjunctivae pink ENT: Present: mucous membranes moist - Routine Respiratory Exam Present: crackles. Absent: accessory muscle use, respiratory distress Comments: RLL - Routine Cardiovascular Exam Present: RRR, no murmur - Routine Abdominal Exam Present: soft, normoactive bowel sounds, non distended. Absent: tenderness - Routine Extremities Exam Present: no edema. Absent: cyanosis, clubbing - Routine Skin Exam Present: intact, dry, warm - Routine Neurological Exam Present: alert, oriented X3, CN II-XII intact Hospital Course This is a general summary of the patient's hospital course. For more details refer to the complete medical record. Hospital course: 07/31/2017 (Admission) Admit to observation status under the care of Dr. Lundberg. Clinically the patient appears ill on exam with active sweating but complaining of chills and fever. He continues to require 2L oxygen due to hypoxia with slightly diminished lung sounds in right base. Will obtain blood cultures x 2 as well as serial lactates now. Initial lactate was elevated at 2.7. CXR in ED showed no acute cardiopulmonary abnormalities, though pulmonary source is highly suspected. Influenza was negative. Will obtain full respiratory panel and initiate Rocephin 1g IV daily with Azithromycin 500mg IV daily for coverage of pulmonary pathogens. Monitor closely on telemetry with continuous pulse oximetry. Wean oxygen as able as patient does not use oxygen at home. Continue with respiratory cares - DuoNeb treatments QID and PRN as well as Pulmicort BID. Continuous oxygen as needed to maintain SAO2 >90%, weaning as able. Continue Prednisone 40mg po daily x 5 day burst for pulmonary inflammation and history of asthma. Will try and obtain sputum culture. Will place on respiratory precautions until results from respiratory panel are complete. NS 100cc/hr for hydration given concern for sepsis. CT head was obtained given severe headache and revealed acute sinusitis without intracranial abnormalities. Will recheck labs in AM to monitor blood counts, electrolytes and renal function. Upon discharge, patient's care will be returned to his PCP, Dr. Dickerson. Patient requests to be a FULL CODE on exam. 08/01/17 Patient able to wean off oxygen and breathing easily on room air. Repeat CXR today revealed no acute cardiopulmonary abnormalities. Viral panel positive for coronavirus. Serial lactates elevated - 2.7, 5.5, 4.0, 4.1. Patient clinically appears improved and stable. Extensive review of medical records and medications performed. Repeat lactate and check CPK at 1400 today. Give 1L NS at 250cc/hr x 1 bolus followed by continued NS at 100cc/hr for continued hydration given elevated lactate. Given initial presentation with sweating and SOA with unexplained elevated lactate, will obtain troponin and EKG now. Continue to monitor closely on telemetry. Will discontinue Azithromycin and Rocephin given clear CXR. Initiate Augmentin for acute sinusitis. Will continue respiratory cares and steroids. Continue respiratory precautions. Patient eager for discharge in near future, once lactate trends down. Lactate trended down, CT showed RLL pneumonia. Patient was on room air with no discomfort or respiratory distress. He was discharged home with antibiotics and plans for follow up with PCP scheduled on 08/08/17 Time spent with patient: 25 - 35 minutes Resuscitation Status: Full Code Discharge Plan - Discharge Disposition Discharge Date: 08/02/17 Disposition: Discharged Home, Self-Care *Condition: Improved Reason For Visit (Visit label in EMR): Sepsis/SIRS - Discharge Medications *Discharge Medications: New Amoxicillin/Potassium Clav [Amox-Clav 875-125 mg Tablet] 875 mg PO Q12HR #11 tab Continue Tamsulosin HCl [Flomax] 0.4 mg PO HS #0 cap Albuterol Sulfate [Proair Hfa] 2 puff INH Q4H PRN #0 inhaler PRN Reason: Shortness Of Air Hydrocodone/APAP 5/325 [[place] 5/325] 1 - 2 tab PO QID PRN PRN Reason: Pain Omeprazole [Prilosec] 20 mg PO DAILY Potassium Chloride 10 meq PO DAILY HydroCHLOROthiazide [Microzide] 12.5 mg PO DAILY Magnesium Oxide [Magnesium] 250 mg PO DAILY ALPRAZolam [Xanax] 0.5 mg PO Q6H PRN PRN Reason: Anxiety Zolpidem [Ambien] 10 mg PO HS Lansoprazole [Prevacid] 1 cap PO HS #0 cap Fluticasone/Salmeterol 250/50 [Advair 250-50 Diskus] 1 puff INH DAILY PRN PRN Reason: Shortness Of Air/Wheezing - Discharge Packet/Instructions *Diet: Regular *Activity: As tolerated *Pain Management/Treatment: Continue antibiotic as directed. Stay hydrated *Wound Care: n/a *Expected Signs/Symptoms: Cough, decreased energy from baseline *Notify Physician if: symptoms worsening *During Business Hours Contact: Primary care physician *After Business Hours Contact: Physician disease education specialist or ED *Pending Lab/Results: No Pending Lab - Referrals/Follow Up *Referrals/Follow Up: Anjel Dickerson II, MD [Family Provider] - 1 Week (Appointment scheduled for 08/08/17) - Patient Handouts Patient Handouts: Asthma (GEN), Sepsis (GEN) - Dismissal Complete Discharge Instructions are:: Complete Physician Narrative - Narrative Attestation Narrative: Date: 08/02/17 Time: 3126
[2017-08-02] MEDS: NS 1,000 ML IV SCH ×2 (12:11→12:12)
[2017-08-03] MEDS ORDERED: HYDROCHLOROTHIAZIDE 12.5 MG PO SCH (08:00)
== END 2017-08-02 12:13 | disposition home or self-care (01) | DRG 871 ==
LOC: ED 08:17 → MED 08:17
PROVIDERS: ADMIT Pediatrics; ATTEND Pediatrics